=== PATIENT | male | born 1995 | race Two or more races ===

== ENCOUNTER 2021-09-06 09:00 | Emergency (ER) | payer OTHER ==
--- NOTE | 2021-09-06 09:24 | ED Physician Documentation ---
PD HPI HEENT - Stated complaint Stated Complaint: L/R EAR/JAW PX - Chief complaint Chief Complaint: Heent - History obtained from History obtained from: Patient - History of Present Illness Timing - onset: How many days ago (3) Timing - duration: Days (3) Timing - details: Gradual onset, Still present (worse today) Associated symptoms: No: Fever, Congestion, Rhinorrhea, Swollen nodes Similar symptoms before: Diagnosis (ear canal infection in past.) Recently seen: Not recently seen Review of Systems Constitutional: denies: Fever, Chills Eyes: reports: Other (no vertigo) Ears: reports: Loss of hearing (mild right), Ear pain. denies: Drainage/discharge Nose: denies: Rhinorrhea / runny nose, Congestion, Sinus pressure / pain Throat: denies: Sore throat Neurologic: denies: Confused, Altered mental status PD PAST MEDICAL HISTORY - Past Medical History Past Medical History: No - Past Surgical History Past Surgical History: No - Present Medications Home Medications: Ambulatory Orders Medication Instructions Recorded Confirmed Neomycin/Polymyx/Hc Otic Drops 3 drops EACHEAR QID 4 Days #10 ml 09/06/21 [Cortisporin Ear Susp] - Allergies Allergies/Adverse Reactions: Allergies Allergy/AdvReac Type Severity Reaction Status Date / Time No Known Drug Allergies Allergy Verified 09/06/21 09:14 - Social History Does the pt smoke?: No Smoking Status: Never smoker Does the pt drink ETOH?: Yes Does the pt have substance abuse?: No - Immunizations Immunizations are current?: Yes PD ED PE NORMAL - Vitals Vital signs reviewed: Yes - General General: Alert and oriented X 3, No acute distress, Well developed/nourished - HEENT HEENT: PERRL, EOMI, Pharynx benign. No: Ears normal (left is okay. right with normal TM. The canal with some redness and inflammation with encroachment of caliber of canal by about 20%.) - Neck Neck: Supple, no meningeal sign, No adenopathy - Derm Derm: Normal color, Warm and dry, No rash Results - Vitals Vitals: Oxygen O2 Source Room air PD MEDICAL DECISION MAKING - ED course Complexity details: considered differential, d/w patient Departure - Departure Disposition: 01 Home, Self Care Clinical Impression: Otitis externa Qualifiers: Otitis externa type: unspecified type Chronicity: acute Laterality: right Qualified Code(s): H60.501 - Unspecified acute noninfective otitis externa, right ear Condition: Stable Record reviewed to determine appropriate education?: Yes Instructions: ED Otitis Externa Follow-Up: [facility] [Provider Group] Prescriptions: Neomycin/Polymyx/Hc Otic Drops [Cortisporin Ear Susp] 3 drops EACHEAR QID 4 Days #10 ml Comments: It does looks like some inflammation and swelling of the ear canal. The eardrums appear normal. This is mainly on the right but a little bit on the left. You can use the antibiotic/anti-inflammatory eardrops in both ears. Use 3 drops 4 times daily for the next 4 days or so. You should notice improvement over the next 2 to 3 days. If not fully resolved, it could be good to have your ears rechecked again before leaving the area. Tylenol or ibuprofen if needed for pains. I transmitted the prescription to [facility] in [place]. Discharge Date/Time: 09/06/21 09:45
[2021-09-06 09:43] VITALS: BP 132/73
== END 2021-09-06 09:45 | disposition home or self-care (01) ==
LOC: ED 09:00
DX: H60.501 Unspecified acute noninfective otitis externa, right ear (principal)
CPT/HCPCS: 99282; 99283